=== PATIENT | female | born 1965 | race Caucasian/White ===

== ENCOUNTER 2017-05-20 09:29 | Outpatient (CLI) | payer BC ==
[2017-05-20 19:43] LABS: BASOPHILS % (AUTO) 0.8 %; EOSINOPHILS # (AUTO) 0.1 10^3/uL (0.0-0.7); EOSINOPHILS % (AUTO) 1.9 %; HCT - HEMATOCRIT 38.2 % (37.0-47.0); HGB - HEMOGLOBIN 12.8 g/dL (12.0-16.0); LYMPHOCYTES # (AUTO) 1.3 10^3/uL (1.5-3.5); LYMPHOCYTES % (AUTO) 37.5 %; MEAN CORPUSCULAR HEMOGLOBIN 32.8 pg (27.0-31.0); MEAN CORPUSCULAR HGB CONC 33.5 g/dL (32.0-36.0); MEAN CORPUSCULAR VOLUME 97.8 fL (81.0-99.0); MEAN PLATELET VOLUME 8.8 fL (7.9-10.8); MONOCYTES # (AUTO) 0.2 10^3/uL (0.0-1.0); MONOCYTES % (AUTO) 6.5 %; NEUTROPHILS # (AUTO) 1.8 10^3/uL (1.5-6.6); NEUTROPHILS % (AUTO) 53.3 %; NUCLEATED RED BLOOD CELLS AUTO 0.3 /100WBC; RED BLOOD COUNT 3.91 10^6/uL (4.20-5.40); RED CELL DISTRIBUTION WIDTH 13.1 % (12.0-15.0); UNCORRECTED WHITE BLOOD COUNT 3.4 x10^3/uL; WHITE BLOOD COUNT 3.4 x10^3/uL (4.8-10.8)
[2017-05-20 20:11] LABS: ALBUMIN/GLOBULIN RATIO 1.4 (1.0-2.2); BILIRUBIN,DIRECT 0.1 mg/dL (0.1-0.5); BILIRUBIN,TOTAL 0.3 mg/dL (0.2-1.0); BUN - BLOOD UREA NITROGEN 13 mg/dL (6-20); CALCIUM 8.7 mg/dL (8.5-10.3); CARBON DIOXIDE - CO2 25 mmol/L (21-32); CHLORIDE 105 mmol/L (101-111); CHOL/HDL RATIO 3.1 (<4.4); CHOLESTEROL 197 mg/dL; CREATININE 0.7 mg/dL (0.4-1.0); GFR - MDRD 88 (>89); GLUCOSE 90 mg/dL (70-100); HDL CHOLESTEROL 63 mg/dL; IRON 95 ug/dL (28-170); LDL/HDL RATIO 1.9 (<4.4); POTASSIUM 4.3 mmol/L (3.5-5.0); SODIUM 137 mmol/L (135-145); TOTAL IRON BINDING CAPACITY 335 ug/dL (250-450); TOTAL PROTEIN 7.1 g/dL (6.7-8.2); TRANSFERRIN 239 mg/dL (192-382); TRIGLYCERIDES 70 mg/dL; VLDL CHOLESTEROL 14 mg/dL
[2017-05-20 20:16] LABS: HEMOGLOBIN A1C 0.4 g/dL
[2017-05-20 20:21] LABS: FREE T3 3.05 pg/mL (2.5-3.9)
[2017-05-20 20:25] LABS: FERRITIN 17.9 ng/mL (11.0-306.8)
[2017-05-20 20:37] LABS: THYROID STIMULATING HORMONE 4.97 uIU/mL (0.34-5.60)
== END 2017-05-20 09:30 | disposition home or self-care (01) ==
LOC: LAB.F 09:29
PROVIDERS: ATTEND Naturopath
DX: Z00.00 Encounter for general adult medical examination without abnormal findings (principal)
CPT/HCPCS: 36415; 80053; 80061; 80076; 82306; 82378; 82728; 83036; 83540; 84439; 84443; 84466; 84481; 85025

== ENCOUNTER 2017-07-26 13:38 | Outpatient (CLI) | payer BC ==
[2017-07-26 18:12] LABS: BASOPHILS % (AUTO) 0.3 %; EOSINOPHILS # (AUTO) 0.1 10^3/uL (0.0-0.7); EOSINOPHILS % (AUTO) 0.8 %; HCT - HEMATOCRIT 38.4 % (37.0-47.0); HGB - HEMOGLOBIN 13.2 g/dL (12.0-16.0); LYMPHOCYTES # (AUTO) 1.7 10^3/uL (1.5-3.5); LYMPHOCYTES % (AUTO) 24.4 %; MEAN CORPUSCULAR HEMOGLOBIN 32.8 pg (27.0-31.0); MEAN CORPUSCULAR HGB CONC 34.4 g/dL (32.0-36.0); MEAN CORPUSCULAR VOLUME 95.5 fL (81.0-99.0); MEAN PLATELET VOLUME 8.5 fL (7.9-10.8); MONOCYTES # (AUTO) 0.5 10^3/uL (0.0-1.0); MONOCYTES % (AUTO) 7.1 %; NEUTROPHILS # (AUTO) 4.8 10^3/uL (1.5-6.6); NEUTROPHILS % (AUTO) 67.4 %; RED BLOOD COUNT 4.02 10^6/uL (4.20-5.40); RED CELL DISTRIBUTION WIDTH 12.4 % (12.0-15.0); UNCORRECTED WHITE BLOOD COUNT 7.2 x10^3/uL; WHITE BLOOD COUNT 7.2 x10^3/uL (4.8-10.8)
== END 2017-07-26 13:39 | disposition home or self-care (01) ==
LOC: LAB.F 13:38
PROVIDERS: ATTEND Naturopath
DX: D72.819 Decreased white blood cell count, unspecified (principal); R71.8 Other abnormality of red blood cells
CPT/HCPCS: 36415; 85025

== ENCOUNTER 2018-06-13 08:00 | Outpatient (CLI) | payer BC ==
[2018-06-13 17:28] LABS: BASOPHILS % (AUTO) 0.3 %; EOSINOPHILS # (AUTO) 0.1 10^3/uL (0.0-0.7); EOSINOPHILS % (AUTO) 1.4 %; HGB - HEMOGLOBIN 13.8 g/dL (12.0-16.0); LYMPHOCYTES # (AUTO) 1.7 10^3/uL (1.5-3.5); MEAN CORPUSCULAR HEMOGLOBIN 32.5 pg (27.0-31.0); MEAN CORPUSCULAR HGB CONC 33.5 g/dL (32.0-36.0); MEAN CORPUSCULAR VOLUME 96.8 fL (81.0-99.0); MEAN PLATELET VOLUME 8.7 fL (7.9-10.8); MONOCYTES # (AUTO) 0.4 10^3/uL (0.0-1.0); MONOCYTES % (AUTO) 7.2 %; NEUTROPHILS # (AUTO) 2.9 10^3/uL (1.5-6.6); NEUTROPHILS % (AUTO) 57.1 %; PLT - PLATELET COUNT 232 10^3/uL (130-450); RED BLOOD COUNT 4.27 10^6/uL (4.20-5.40); RED CELL DISTRIBUTION WIDTH 12.9 % (12.0-15.0)
[2018-06-13 17:46] LABS: ALT ALANINE AMINOTRANSFERASE 17 IU/L (10-60); AST ASPARTATE AMINOTRANSFERASE 23 IU/L (10-42)
[2018-06-13 18:06] LABS: THYROID STIMULATING HORMONE 4.3 uIU/mL (0.34-5.60)
[2018-06-13 18:08] LABS: FREE T4 (FREE THYROXINE) 0.71 ng/dL (0.58-1.64)
[2018-06-13 18:09] LABS: FERRITIN 37.5 ng/mL (11.0-306.8)
[2018-06-13 18:32] LABS: FOLLICLE STIMULATING HORMONE 84.14 mIU/mL
[2018-06-13 18:33] LABS: LUTEINIZING HORMONE 63.15 mIU/mL
== END 2018-06-13 08:01 | disposition home or self-care (01) ==
LOC: LAB.F 08:00
PROVIDERS: ATTEND Naturopath
DX: N95.1 Menopausal and female climacteric states (principal); R53.83 Other fatigue; D51.9 Vitamin B12 deficiency anemia, unspecified
CPT/HCPCS: 36415; 82728; 83001; 83002; 84439; 84443; 84450; 84460; 84481; 84482; 85025